=== PATIENT | female | born 1980 ===

== ENCOUNTER 2021-06-05 10:29 | Inpatient (IN) | payer BC ==
[2021-06-05] MEDS: Lactated Ringers 1,000 ML IV SCH ×2 (10:45→11:44)
[2021-06-05] MEDS ORDERED: Oxytocin 10 Units/1 ML SDV ONE ×3 (10:53)
[2021-06-05] MEDS ORDERED: ceFAZolin 1 GM Vial ONE ×2 (10:53)
[2021-06-05] MEDS ORDERED: Ropivacaine 0.5% 5 MG/ML 30 ML SDV ONE ×3 (10:53→11:02)
[2021-06-05] MEDS ORDERED: Ondansetron 4 MG/2 ML SDV ONE ×2 (10:53)
[2021-06-05] MEDS ORDERED: fentaNYL 100 MCG/2 ML SDV ONE (10:57)
[2021-06-05] MEDS ORDERED: Morphine PF 10 MG/10 ML SDV ONE (10:57)
[2021-06-05] MEDS ORDERED: Sodium Chloride 0.9% 20 ML SDV IV PRN (11:21)
[2021-06-05] MEDS ORDERED: Sodium Chloride 0.9% 10 ML Syringe FLUSH PRN (11:21)
[2021-06-05] MEDS ORDERED: Sodium Chloride 0.9% 2.5 ML Syringe FLUSH PRN (11:21)
[2021-06-05] MEDS ORDERED: Citric Acid/Sodium Citrate Solution 30 ML Cup PO ONE (11:21)
[2021-06-05] MEDS ORDERED: Oxytocin/0.9 % Sodium Chloride 30 UNIT/500 ML BAG IV SCH (11:30)
[2021-06-05] MEDS ORDERED: Lanolin 100% Cream 7 GM Tube TOP PRN (13:29)
[2021-06-05] MEDS ORDERED: Bisacodyl 10 MG Supp RECTAL PRN (13:29)
[2021-06-05] MEDS ORDERED: diphenhydrAMINE 50 MG/ML SDV IVPUSH PRN (13:29)
[2021-06-05] MEDS ORDERED: Acetaminophen/oxyCODONE 325-5 MG Tab PO PRN (13:29)
[2021-06-05] MEDS ORDERED: Methylergonovine 0.2 MG/1 ML Amp IM PRN (13:29)
[2021-06-05] MEDS ORDERED: Ibuprofen 800 MG Tab PO PRN (13:29)
[2021-06-05] MEDS ORDERED: Ondansetron 4 MG/2 ML SDV IVPUSH PRN (13:29)
[2021-06-05] MEDS ORDERED: Misoprostol 200 MCG Tab RECTAL PRN (13:29)
[2021-06-05] MEDS ORDERED: Tranexamic Acid 1,000 MG in Sodium Chloride 0.9% 100 ML IV PRN (13:29)
[2021-06-05] MEDS ORDERED: Lactated Ringers 1,000 ML IV SCH (13:30)
[2021-06-05] MEDS ORDERED: Ketorolac 30 MG/ML SDV IVPUSH SCH (13:30)
[2021-06-05] MEDS: Ketorolac 30 MG/ML SDV IVPUSH SCH ×2 (18:09→23:57)
[2021-06-05] MEDS: Docusate Sodium 100 MG Cap PO SCH (22:00)
--- NOTE | 2021-06-05 22:31 | OR ---
SURGEON: Daljit Hough MD DATE OF PROCEDURE: 06/05/2021 INDICATION FOR PROCEDURE: A 41-year-old, G1, P0, at 39 weeks and 0 days, presenting for scheduled primary . The patient's was complicated by advanced maternal age, which she had serial growth ultrasounds and weekly testing that was reassuring. She has multiple fibroids with large ones at the uterine fundus and in the posterior lower uterine segment. The baby has been persistently in transverse presentation. She also had choroid plexus cysts on anatomy ultrasound with normal NIPT. The cyst had resolved on repeat ultrasound. Previously discussed with the patient that the baby has been persistently in transverse presentation likely due to anatomic distortions due to her multiple large fibroids. Recommended proceeding with primary low-transverse section, which she was agreeable. Bedside ultrasound was performed prior to C- section and again the baby was confirmed to be in transverse presentation. PREOPERATIVE DIAGNOSES: 1. Advanced maternal age. 2. Multiple uterine fibroids. 3. Transverse presentation. 4. COVID-19 infection in . POSTOPERATIVE DIAGNOSES: 1. Advanced maternal age. 2. Multiple uterine fibroids. 3. Transverse presentation. 4. COVID-19 infection in . PROCEDURES PERFORMED: Low transverse section. ECHOCARDIOLOGIST: Diana Young MD. ANESTHESIOLOGIST: Dr. Juan M Camp. ANESTHESIA: Spinal. IV FLUIDS: 1400 mL. URINE OUTPUT: 100 mL. ESTIMATED BLOOD LOSS: 400 mL. FINDINGS: Uterus enlarged with a fundal fibroid on the left side. She had a pedunculated fibroid posteriorly and multiple fibroids near the posterior cervix. The cervix was tilted very posteriorly due to the fibroids. A viable male infant, score and weight were pending. Baby was in transverse presentation with the back down. DESCRIPTION OF PROCEDURE: Procedure was discussed with the patient. Risks included bleeding, infection, DVTs, injury to surrounding organs including bladder, bowel, and ureter. The patient expressed understanding. Consent signed. The patient was brought to the operating room. She received 2 g of Ancef and SCDs. Spinal anesthesia was performed. Toth catheter was placed. The abdomen was prepped with chlorhexidine in sterile fashion and draped and tested for anesthesia. Spinal was adequate. Pfannenstiel incision was made with a scalpel and dissected down to fascia. Sites of bleeding were noted and cauterized. The fascia was cleared of subcutaneous tissue. The fascia was incised in the midline, extended laterally with curved Monroy scissors. Solomon clamps were placed on the superior fascial edge. The rectus muscles were from the fascia by blunt dissection and using Monroy scissors. The rectus muscles were also in the inferior edge in a similar fashion. The rectus muscles were in the midline with hemostat. The peritoneum was identified and entered bluntly. The Nicanor-O retractor was inserted into the peritoneal cavity. The uterine anatomy was carefully examined and noted the uterus was enlarged with a 5 cm fibroid near the right fundus. The uterus was also tilted very anteriorly due to multiple fibroids near the posterior cervix. The bladder was identified and noted to be away from the lower uterine segment. The uterus was incised using the scalpel at the lower uterine segment and extended bluntly. Clear amniotic fluid was noted and the infant's hips were grasped and brought to the hysterotomy, was turned sacrum anterior and elevated. The buttocks were delivered followed by delivery of both legs. The right shoulder was rotated anteriorly and right arm delivered by sweeping toward the body. Then the left shoulder was turned anterior and arm delivered in similar fashion. The head was delivered by elevating the hip and flexing the maxilla. The nose and mouth were suctioned. The umbilical cord was clamped and cut after 60 seconds and no longer pulsating. The was pink, crying vigorously, and moving all extremities immediately after delivery. Cord gases were obtained. The placenta was delivered with gentle traction on the umbilical cord. The uterus was cleared of any remaining membranes with a clean lap. Allis clamps were used to grasp the angles and lower edges of the incision. The uterine incision was closed in a running nonlocking suture using 0 Monocryl. Hemostasis was confirmed after the repair. The uterus was firm. The paracolic gutters were cleared of any clots. Incision was irrigated and again hemostasis was confirmed. The peritoneum was brought together at the midline with hemostats and closed in running fashion using a 2-0 Vicryl. The rectus muscles were carefully examined and found to be hemostatic. It was reapproximated in the midline using a 2-0 Vicryl with a mattress stitch. The fascia was closed with two 0 Vicryl sutures in a running fashion. The subcutaneous tissue was irrigated and bleeding areas cauterized. The subcutaneous layer was closed with 2-0 plain suture in running fashion. The skin was closed with 3-0 Monocryl on a Fred needle. Telfa and ABD dressing were placed over the incision. The patient tolerated the procedure well and was brought to the recovery room in stable condition. DEYVI DASH /[id number]
[2021-06-06] MEDS: Ketorolac 30 MG/ML SDV IVPUSH SCH ×2 (06:00→11:55)
[2021-06-06] MEDS: Docusate Sodium 100 MG Cap PO SCH ×2 (08:11→21:01)
--- NOTE | 2021-06-06 12:28 | PCM.PNPP ---
- General Info Date of Service: 06/06/21 Functional Status: Reports: Pain Controlled, Tolerating Diet, Ambulating, Urinating, Other (Pena removed this AM, voided. Bleeding light. ) - Review of Systems General: Reports: No Symptoms HEENT: Reports: No Symptoms Pulmonary: Reports: No Symptoms Cardiovascular: Reports: No Symptoms Gastrointestinal: Reports: No Symptoms Genitourinary: Reports: No Symptoms Musculoskeletal: Reports: No Symptoms Skin: Reports: No Symptoms Neurological: Reports: No Symptoms Psychiatric: Reports: No Symptoms - Patient Data Vital Signs - Most Recent: Last Vital Signs Temp 36.1 C 06/06/21 08:55 Pulse 69 06/06/21 08:55 Resp 18 06/06/21 08:55 BP 105/63 06/06/21 08:55 Pulse Ox 99 06/06/21 08:55 Weight - Most Recent: 124 lb I&O - Last 24 Hours: Intake & Output 06/05/21 06/06/21 06/06/21 22:59 06:59 14:59 Intake Total 480 Output Total 650 765 400 Balance -650 -285 -400 Lab Results - Last 24 Hours: Laboratory Results - last 24 hr 06/05/21 06/05/21 06/06/21 Range/Units 10:45 10:45 05:46 Hgb 10.9 L (12.0-16.0) g/dL Hct 32.2 L (36.0-46.0) % RPR Non-Reac (Non-Reac) Blood Type O POSITIVE Antibody Screen NEGATIVE Med Orders - Current: Current Medications Bisacodyl (Bisacodyl 10 Mg Supp) 10 mg RECTAL ONETIME PRN PRN Reason: Constipation Diphenhydramine HCl (Diphenhydramine 50 Mg/Ml Sdv) 25 mg IVPUSH Q6H PRN PRN Reason: Itching or Nausea Docusate Sodium (Docusate Sodium 100 Mg Cap) 100 mg PO BID [facility] Last Admin: 06/06/21 08:11 Dose: 100 mg Documented by: Emollient Ointment (Lanolin 100% Cream 7 Gm Tube) 0 gm TOP ASDIRECTED PRN PRN Reason: Sore Nipples Last Admin: 06/06/21 08:15 Dose: 7 gm Documented by: Lactated Ringer's (Ringers, Lactated) 1,000 mls @ 500 mls/hr IV BOLUS [facility] Last Admin: 06/05/21 11:44 Dose: 999 mls/hr Documented by: Oxytocin/Sodium Chloride (Oxytocin 30 Unit In Ns 0.9% 500 Ml Premix) 30 unit in 500 mls @ 250 mls/hr IV TITRATE [facility] Lactated Ringer's (Ringers, Lactated) 1,000 mls @ 125 mls/hr IV ASDIRECTED [facility] Last Admin: 06/05/21 14:08 Dose: 125 mls/hr Documented by: Tranexamic Acid 1,000 mg/ (Sodium Chloride) 110 mls @ 660 mls/hr IV ONETIME PRN PRN Reason: Bleeding Ibuprofen (Ibuprofen 800 Mg Tab) 800 mg PO Q8H PRN PRN Reason: Cramping Ketorolac Tromethamine (Ketorolac 30 Mg/Ml Sdv) 30 mg IVPUSH Q6H [facility] Stop: 06/06/21 18:01 Last Admin: 06/06/21 11:55 Dose: 30 mg Documented by: Methylergonovine Maleate (Methylergonovine 0.2 Mg/1 Ml Amp) 0.2 mg IM ONETIME PRN PRN Reason: Excessive Vaginal Bleeding Misoprostol (Misoprostol 200 Mcg Tab) 1,000 mcg RECTAL ONETIME PRN PRN Reason: excessive bleeding Ondansetron HCl (Ondansetron 4 Mg/2 Ml Sdv) 4 mg IVPUSH Q4H PRN PRN Reason: Nausea/Vomiting Oxycodone/Acetaminophen (Acetaminophen/Oxycodone 325-5 Mg Tab) 1 tab PO Q4H PRN PRN Reason: Pain (severe 7-10) Oxycodone/Acetaminophen (Acetaminophen/Oxycodone 325-5 Mg Tab) 2 tab PO Q4H PRN PRN Reason: Pain (severe 7-10) Sodium Chloride (Sodium Chloride 0.9% 10 Ml Syringe) 10 ml FLUSH ASDIRECTED PRN PRN Reason: Keep Vein Open Sodium Chloride (Sodium Chloride 0.9% 2.5 Ml Syringe) 2.5 ml FLUSH ASDIRECTED PRN PRN Reason: Keep Vein Open Sodium Chloride (Sodium Chloride 0.9% 20 Ml Sdv) 10 ml IV ASDIRECTED PRN PRN Reason: IV Use Discontinued Medications Cefazolin Sodium (Cefazolin 1 Gm Vial) Confirm Administered Dose 1 gm .ROUTE .STK-MED ONE Stop: 06/05/21 10:54 Cefazolin Sodium (Cefazolin 1 Gm Vial) Confirm Administered Dose 1 gm .ROUTE .ST-MED ONE Stop: 06/05/21 10:54 Citric Acid/Sodium Citrate (Citric Acid/Sodium Citrate Solution 30 Ml Cup) 30 ml PO ONETIME ONE Stop: 06/05/21 11:22 Fentanyl (Fentanyl 100 Mcg/2 Ml Sdv) Confirm Administered Dose 100 mcg .ROUTE .ST-MED ONE Stop: 06/05/21 10:58 Ketorolac Tromethamine (Ketorolac 30 Mg/Ml Sdv) 30 mg IVPUSH Q6H [facility] Stop: 06/06/21 13:31 Miscellaneous Medication (Phenylephrine Hcl In 0.9% Nacl 1 Mg/10 Ml Syringe) Confirm Administered Dose 1 mg .ROUTE .STK-MED ONE Stop: 06/05/21 10:54 Morphine Sulfate (Morphine Pf 10 Mg/10 Ml Sdv) Confirm Administered Dose 10 mg .ROUTE .ST-MED ONE Stop: 06/05/21 10:58 Ondansetron HCl (Ondansetron 4 Mg/2 Ml Sdv) Confirm Administered Dose 4 mg .ROUTE .ST-MED ONE Stop: 06/05/21 10:54 Ondansetron HCl (Ondansetron 4 Mg/2 Ml Sdv) Confirm Administered Dose 4 mg .ROUTE .ST-MED ONE Stop: 06/05/21 10:54 Oxytocin (Oxytocin 10 Units/1 Ml Sdv) Confirm Administered Dose 10 unit .ROUTE .ST-MED ONE Stop: 06/05/21 10:54 Oxytocin (Oxytocin 10 Units/1 Ml Sdv) Confirm Administered Dose 10 unit .ROUTE .ST-MED ONE Stop: 06/05/21 10:54 Oxytocin (Oxytocin 10 Units/1 Ml Sdv) Confirm Administered Dose 10 unit .ROUTE .ST-MED ONE Stop: 06/05/21 10:54 Ropivacaine (Ropivacaine 0.5% 5 Mg/Ml 30 Ml Sdv) Confirm Administered Dose 30 ml .ROUTE .STK-MED ONE Stop: 06/05/21 10:54 Ropivacaine (Ropivacaine 0.5% 5 Mg/Ml 30 Ml Sdv) Confirm Administered Dose 30 ml .ROUTE .ST-MED ONE Stop: 06/05/21 10:56 Ropivacaine (Ropivacaine 0.5% 5 Mg/Ml 30 Ml Sdv) Confirm Administered Dose 60 ml .ROUTE .STK-MED ONE Stop: 06/05/21 11:03 - Interaction Disposition, : [place] at Bedside Interaction: Holding Infant Infant Feeding: Breastfed ; Nursed Well Support Person: - Recovery Exam Fundal Tone: Firm Fundal Level: At Umbilicus Fundal Placement: Midline Lochia Amount: Scant Lochia Color: Rubra/Red Perineum Description: Intact, Minimal Bruising/Swelling Episiotomy/Laceration: None Bladder Status: Voiding Urinary Elimination: Voided - Exam General: Alert, Oriented, Cooperative, No Acute Distress HEENT: Pupils Equal, Pupils Reactive, EOMI Neck: Supple, Trachea Midline, No JVD Lungs: Normal Respiratory Effort GI/Abdominal Exam: Soft, Non-Tender, No Distention Extremities: Normal Inspection, Normal Range of Motion, Non-Tender, No Pedal Edema Skin: Warm, Dry, Intact Wound/Incisions: Dressing Dry and Intact Neurological: No New Focal Deficit Psy/Mental Status: Alert, Normal Affect, Normal Mood - Problem List Review Problem List Initiated/Reviewed/Updated: Yes - My Orders Last 24 Hours: My Active Orders 06/05/21 11:30 Lactated Ringers [Ringers, Lactated] 1,000 ml IV BOLUS Oxytocin/0.9 % Sodium Chloride [Oxytocin 30 Unit in NS 0.9% 500 ML Premix] 30 unit in 500 ml IV TITRATE 06/05/21 13:29 Intake and Output [RC] Q4H Notify Provider Intake and Out [RC] ASDIRECTED Notify Provider Vital Signs [RC] ASDIRECTED Acetaminophen/oxyCODONE [Percocet 325-5 MG] 1 tab PO Q4H PRN Acetaminophen/oxyCODONE [Percocet 325-5 MG] 2 tab PO Q4H PRN Ibuprofen [Motrin] 800 mg PO Q8H PRN Lanolin [Lansinoh HPA] See Dose Instructions TOP ASDIRECTED PRN Methylergonovine [Methergine] 0.2 mg IM ONETIME PRN Ondansetron [Zofran] 4 mg IVPUSH Q4H PRN Tranexamic Acid [Cyklokapron] 1,000 mg Sodium Chloride 0.9% [Normal Saline] 100 ml IV ONETIME bisacodyL [Dulcolax] 10 mg RECTAL ONETIME PRN diphenhydrAMINE [Benadryl] 25 mg IVPUSH Q6H PRN miSOPROStoL [Cytotec] 1,000 mcg RECTAL ONETIME PRN 06/05/21 13:30 Ambulate [RC] PER UNIT ROUTINE Antiembolic Devices [RC] PER UNIT ROUTINE Communication Order [RC] PER UNIT ROUTINE Communication Order [RC] PER UNIT ROUTINE Communication Order [RC] Per Unit Routine May Shower [RC] ASDIRECTED RT Incentive Spirometry [RC] Q2HWA Lactated Ringers [Ringers, Lactated] 1,000 ml IV ASDIRECTED Abdominal Binder [OM.PC] Per Unit Routine Assess Lochia [WOMSER] Per Unit Routine Assess Uterine Involution [WOMSER] Per Unit Routine Breast Pump [WOMSER] Per Unit Routine Peripheral IV Discontinue [OM.PC] Routine Sequential Compression Device [OM.PC] Per Unit Routine 06/05/21 Dinner Regular Diet [DIET] 06/05/21 18:00 Ketorolac [Toradol] 30 mg IVPUSH Q6H 06/05/21 21:00 Docusate Sodium [Colace] 100 mg PO BID - Assessment Assessment:: 41 yo POD1 s/p primary LTCS due to transverse presentation and uterine fibroids. Stable and recovering well. - Plan Plan:: - vitals stable - Hgb stable, bleeding light, no s/s of anemia - adequate UO, removed pena, voiding - ambulating well, tolerating PO - well, desires circumcision Continue inpatient, plan for discharge home tomorrow.
[2021-06-06] MEDS: Acetaminophen/oxyCODONE 325-5 MG Tab PO PRN ×2 (15:58→21:01)
[2021-06-07] MEDS: Acetaminophen/oxyCODONE 325-5 MG Tab PO PRN (07:23)
--- NOTE | 2021-06-07 07:23 | PCM.PNPP ---
- General Info Date of Service: 06/07/21 Functional Status: Reports: Pain Controlled, Tolerating Diet, Ambulating, Urinating - Review of Systems General: Reports: No Symptoms HEENT: Reports: No Symptoms Pulmonary: Reports: No Symptoms Cardiovascular: Reports: No Symptoms Gastrointestinal: Reports: No Symptoms Genitourinary: Reports: No Symptoms Musculoskeletal: Reports: No Symptoms Skin: Reports: No Symptoms Neurological: Reports: No Symptoms Psychiatric: Reports: No Symptoms - Patient Data Vital Signs - Most Recent: Last Vital Signs Temp 37.1 C 06/07/21 04:00 Pulse 85 06/07/21 04:00 Resp 15 06/07/21 04:00 BP 102/60 06/07/21 04:00 Pulse Ox 95 06/07/21 04:00 Weight - Most Recent: 124 lb Lab Results - Last 24 Hours: Laboratory Results - last 24 hr 06/05/21 Range/Units 10:45 RPR Non-Reac (Non-Reac) Med Orders - Current: Current Medications Bisacodyl (Bisacodyl 10 Mg Supp) 10 mg RECTAL ONETIME PRN PRN Reason: Constipation Diphenhydramine HCl (Diphenhydramine 50 Mg/Ml Sdv) 25 mg IVPUSH Q6H PRN PRN Reason: Itching or Nausea Docusate Sodium (Docusate Sodium 100 Mg Cap) 100 mg PO BID [facility] Last Admin: 06/06/21 21:01 Dose: 100 mg Documented by: Emollient Ointment (Lanolin 100% Cream 7 Gm Tube) 0 gm TOP ASDIRECTED PRN PRN Reason: Sore Nipples Last Admin: 06/06/21 08:15 Dose: 7 gm Documented by: Lactated Ringer's (Ringers, Lactated) 1,000 mls @ 500 mls/hr IV BOLUS [facility] Last Admin: 06/05/21 11:44 Dose: 999 mls/hr Documented by: Oxytocin/Sodium Chloride (Oxytocin 30 Unit In Ns 0.9% 500 Ml Premix) 30 unit in 500 mls @ 250 mls/hr IV TITRATE [facility] Lactated Ringer's (Ringers, Lactated) 1,000 mls @ 125 mls/hr IV ASDIRECTED [facility] Last Admin: 06/05/21 14:08 Dose: 125 mls/hr Documented by: Tranexamic Acid 1,000 mg/ (Sodium Chloride) 110 mls @ 660 mls/hr IV ONETIME PRN PRN Reason: Bleeding Ibuprofen (Ibuprofen 800 Mg Tab) 800 mg PO Q8H PRN PRN Reason: Cramping Methylergonovine Maleate (Methylergonovine 0.2 Mg/1 Ml Amp) 0.2 mg IM ONETIME PRN PRN Reason: Excessive Vaginal Bleeding Misoprostol (Misoprostol 200 Mcg Tab) 1,000 mcg RECTAL ONETIME PRN PRN Reason: excessive bleeding Ondansetron HCl (Ondansetron 4 Mg/2 Ml Sdv) 4 mg IVPUSH Q4H PRN PRN Reason: Nausea/Vomiting Oxycodone/Acetaminophen (Acetaminophen/Oxycodone 325-5 Mg Tab) 1 tab PO Q4H PRN PRN Reason: Pain (severe 7-10) Oxycodone/Acetaminophen (Acetaminophen/Oxycodone 325-5 Mg Tab) 2 tab PO Q4H PRN PRN Reason: Pain (severe 7-10) Last Admin: 06/06/21 21:01 Dose: 2 tab Documented by: Sodium Chloride (Sodium Chloride 0.9% 10 Ml Syringe) 10 ml FLUSH ASDIRECTED PRN PRN Reason: Keep Vein Open Sodium Chloride (Sodium Chloride 0.9% 2.5 Ml Syringe) 2.5 ml FLUSH ASDIRECTED PRN PRN Reason: Keep Vein Open Sodium Chloride (Sodium Chloride 0.9% 20 Ml Sdv) 10 ml IV ASDIRECTED PRN PRN Reason: IV Use Discontinued Medications Cefazolin Sodium (Cefazolin 1 Gm Vial) Confirm Administered Dose 1 gm .ROUTE .STK-MED ONE Stop: 06/05/21 10:54 Cefazolin Sodium (Cefazolin 1 Gm Vial) Confirm Administered Dose 1 gm .ROUTE .STK-MED ONE Stop: 06/05/21 10:54 Citric Acid/Sodium Citrate (Citric Acid/Sodium Citrate Solution 30 Ml Cup) 30 ml PO ONETIME ONE Stop: 06/05/21 11:22 Fentanyl (Fentanyl 100 Mcg/2 Ml Sdv) Confirm Administered Dose 100 mcg .ROUTE .STK-MED ONE Stop: 06/05/21 10:58 Ketorolac Tromethamine (Ketorolac 30 Mg/Ml Sdv) 30 mg IVPUSH Q6H [facility] Stop: 06/06/21 13:31 Ketorolac Tromethamine (Ketorolac 30 Mg/Ml Sdv) 30 mg IVPUSH Q6H [facility] Stop: 06/06/21 18:01 Last Admin: 06/06/21 11:55 Dose: 30 mg Documented by: Miscellaneous Medication (Phenylephrine Hcl In 0.9% Nacl 1 Mg/10 Ml Syringe) Confirm Administered Dose 1 mg .ROUTE .STK-MED ONE Stop: 06/05/21 10:54 Morphine Sulfate (Morphine Pf 10 Mg/10 Ml Sdv) Confirm Administered Dose 10 mg .ROUTE .STK-MED ONE Stop: 06/05/21 10:58 Ondansetron HCl (Ondansetron 4 Mg/2 Ml Sdv) Confirm Administered Dose 4 mg .ROUTE .STK-MED ONE Stop: 06/05/21 10:54 Ondansetron HCl (Ondansetron 4 Mg/2 Ml Sdv) Confirm Administered Dose 4 mg .ROUTE .STK-MED ONE Stop: 06/05/21 10:54 Oxytocin (Oxytocin 10 Units/1 Ml Sdv) Confirm Administered Dose 10 unit .ROUTE .STK-MED ONE Stop: 06/05/21 10:54 Oxytocin (Oxytocin 10 Units/1 Ml Sdv) Confirm Administered Dose 10 unit .ROUTE .STK-MED ONE Stop: 06/05/21 10:54 Oxytocin (Oxytocin 10 Units/1 Ml Sdv) Confirm Administered Dose 10 unit .ROUTE .STK-MED ONE Stop: 06/05/21 10:54 Ropivacaine (Ropivacaine 0.5% 5 Mg/Ml 30 Ml Sdv) Confirm Administered Dose 30 ml .ROUTE .STK-MED ONE Stop: 06/05/21 10:54 Ropivacaine (Ropivacaine 0.5% 5 Mg/Ml 30 Ml Sdv) Confirm Administered Dose 30 ml .ROUTE .STK-MED ONE Stop: 06/05/21 10:56 Ropivacaine (Ropivacaine 0.5% 5 Mg/Ml 30 Ml Sdv) Confirm Administered Dose 60 ml .ROUTE .STK-MED ONE Stop: 06/05/21 11:03 - Interaction Infant Disposition, : [place] at Bedside Infant Interaction: Holding Infant Feeding: Breastfed Infant; Nursed Well Support Person: - Recovery Exam Fundal Tone: Firm Fundal Level: At Umbilicus Fundal Placement: Midline Lochia Amount: Scant Lochia Color: Rubra/Red Perineum Description: Intact, Minimal Bruising/Swelling Episiotomy/Laceration: None Bladder Status: Voiding Urinary Elimination: Voided - Exam General: Alert, Oriented, Cooperative, No Acute Distress HEENT: Pupils Equal, Pupils Reactive, EOMI Neck: Supple, Trachea Midline, No JVD Lungs: Normal Respiratory Effort GI/Abdominal Exam: Soft, Non-Tender, No Distention Extremities: Normal Inspection, Normal Range of Motion, Non-Tender, No Pedal Edema Skin: Warm, Dry, Intact Wound/Incisions: Healing Well Neurological: No New Focal Deficit Psy/Mental Status: Alert, Normal Affect, Normal Mood - Problem List Review Problem List Initiated/Reviewed/Updated: Yes - My Orders Last 24 Hours: My Active Orders 06/07/21 07:05 Ready for Discharge [RC] PER UNIT ROUTINE - Assessment Assessment:: 41 yo POD2 s/p primary LTCS due to transverse presentation and uterine fibroids. Stable and recovering well. - Plan Plan:: - vitals stable - Hgb stable, bleeding light, no s/s of anemia - ambulating well, tolerating PO - well, baby s/p circumcision Plan for discharge home today. Reviewed care instructions
[2021-06-07] MEDS: Docusate Sodium 100 MG Cap PO SCH (09:59)
== END 2021-06-07 13:00 | disposition home or self-care (01) | DRG 540 ==
LOC: MW.OBCHECK 10:29 → MW.OB 10:30 → OBSVTOIN 11:21 → MW.OB 17:20
PROVIDERS: ADMIT Obstetrics & Gynecology; ATTEND Obstetrics & Gynecology
PROC: 10D00Z1 Extraction of Products of Conception, Low, Open Approach (ICD-10-PCS; principal; 2021-06-05)
DX: O34.13 Maternal care for benign tumor of corpus uteri, third trimester (principal); D25.9 Leiomyoma of uterus, unspecified; O32.2XX0 Maternal care for transverse and oblique lie, not applicable or unspecified; Z3A.39 39 weeks gestation of pregnancy; Z37.0 Single live birth; Z86.16 Personal history of COVID-19
CPT/HCPCS: 01961; 36415; 59025; 64488; 85014; 85018; 85027; 86592; 86850; 86900; 86901; A9270-GY; J0690; J1885; J2270; J2370; J2405; J2590; J2795; J3010; J7120